=== PATIENT | female | born 1965 | race African-American/Black ===

== ENCOUNTER 2017-02-13 15:14 | Inpatient (IN) | payer OTHER ==
[~2017-02-13] VITALS: Ht 170.2 cm; Wt 60.8 kg
[~2017-02-13 15:14] MED LIST: ACET-2165 PO; ANT30 PO; BACL10TA PO; CLON1TAB4 PO; COG1 PO; FERR-57 PO; MAGN400O4 PO; RISP1TAB7 PO; ZOLP10TA2 PO
[2017-02-13 15:17] VITALS: BP_SYST 111
[2017-02-13] MEDS ORDERED: ALPR-373 PO (15:45)
[2017-02-13] MEDS ORDERED: LURA40TA PO (15:45)
[2017-02-13] MEDS ORDERED: TRAZ-123 PO (15:45)
[2017-02-13] MEDS ORDERED: ANT30 PO (15:45)
[2017-02-13] MEDS ORDERED: BACL20TA PO (15:45)
[2017-02-13 16:13] LABS: MEAN CORPUSCULAR HEMOGLOBIN 19 pg (27-31); MEAN CORPUSCULAR HGB CONC 30 % (32-36); MEAN CORPUSCULAR VOLUME 65 fL (79.0-98.0); PLATELET COUNT (AUTO) 61 K/uL (130-430); RED BLOOD CELL COUNT(AUTO) 3.07 MIL/uL (4.2-6.2); RED CELL DISTRIBUTION WIDTH 21.5 % (9.0-15.0)
[2017-02-13 16:20] LABS: ANION GAP 7 (5-15); CALCIUM 9.1 mg/dL (8.4-11.0); CHLORIDE 105 mmol/L (98-107); GLUCOSE 90 mg/dL (70-99); SODIUM SERUM 142 mmol/L (136-145); UREA NITROGEN, BLOOD 9 mg/dL (8-21)
[2017-02-13 16:21] LABS: HEMATOCRIT 19.9 % (36-48); HEMOGLOBIN 5.9 g/dL (12.0-16.0)
[2017-02-13 16:29] LABS: ALANINE AMINOTRANSFERASE 17 U/L (12-78); ALBUMIN 3.6 g/dL (3.4-4.8); ASPARTATE AMINOTRANSFERASE 24 U/L (10-37); TOTAL BILIRUBIN 0.4 mg/dL (0.0-1.0); TOTAL PROTEIN, SERUM 7.1 g/dL (6.4-8.3)
[2017-02-13 16:32] LABS: GFR AFRICAN AMERICAN 98 mL/min (>90)
[2017-02-13 16:47] LABS: ATYPICAL LYMPHOCYTES % 3 % (0-0); BAND % (MANUAL) 6 % (0-6); BASOPHILS % (MANUAL) 0 % (0-2); EOSINOPHILS % (MANUAL) 0 % (0-7); LYMPHOCYTES % (MANUAL) 46 % (20-46); MONOCYTES % (MANUAL) 2 % (0-11)
[2017-02-13 16:58] VITALS: BP_SYST 121
[2017-02-13 16:58] LABS: IRON (SERUM) 20 mcg/dL (37-145)
[2017-02-13 20:20] VITALS: BP_SYST 97
[2017-02-13 20:25] VITALS: BP_SYST 97
[2017-02-13] MEDS ORDERED: ACETAMINOPHEN 325 MG TABLET PO SCH (20:30)
[2017-02-13] MEDS ORDERED: ZOLPIDEM TARTRATE 5 MG TABLET PO SCH (20:30)
[2017-02-13] MEDS ORDERED: NON-FORMULARY MEDICATION (Alprazolam 0.5 MG) PO SCH (20:30)
[2017-02-13] MEDS ORDERED: MAG-AL HYDROX/SIMETH 30 ML UDC PO SCH (20:30)
[2017-02-13] MEDS ORDERED: BACLOFEN 10 MG TABLET PO SCH ×2 (21:00)
[2017-02-13] MEDS: BENZTROPINE MESYLATE 1 MG TABLET PO SCH (22:31)
[2017-02-13] MEDS: traZODone HCL 50 MG TABLET (DESYREL) PO SCH (22:31)
[2017-02-13] MEDS: risperiDONE 1 MG TABLET (RisperDAL) PO SCH (22:32)
[2017-02-13] MEDS: FERROUS SULFATE 325 MG TABLET.DR PO SCH (22:36)
[2017-02-14] MEDS ORDERED: DIPHENHYDRAMINE HCL 25 MG CAPSULE PO PRN (00:15)
[2017-02-14] MEDS ORDERED: ACETAMINOPHEN 325 MG TABLET PO PRN (00:45)
[2017-02-14] MEDS ORDERED: ZOLPIDEM TARTRATE 5 MG TABLET PO PRN (00:45)
[2017-02-14] MEDS ORDERED: MAG-AL HYDROX/SIMETH 30 ML UDC PO PRN (00:45)
[2017-02-14 03:37] VITALS: BP_SYST 114
[2017-02-14 07:17] LABS: HEMATOCRIT 26.8 % (36-48); MEAN CORPUSCULAR HEMOGLOBIN 20 pg (27-31); MEAN CORPUSCULAR HGB CONC 30 % (32-36); MEAN CORPUSCULAR VOLUME 67 fL (79.0-98.0); PLATELET COUNT (AUTO) 60 K/uL (130-430); RED CELL DISTRIBUTION WIDTH 20.9 % (9.0-15.0)
[2017-02-14 07:41] LABS: CREATININE 0.68 mg/dL (0.55-1.30); POTASSIUM 3.8 mmol/L (3.5-5.1)
[2017-02-14 08:03] LABS: WHITE BLOOD COUNT (AUTO) 3.7 K/uL (4.8-10.8)
[2017-02-14 08:24] VITALS: BP_SYST 117
[2017-02-14] MEDS: MILK OF MAGNESIA 30 ML UDC PO SCH ×2 (09:00→09:21)
[2017-02-14] MEDS: BACLOFEN 10 MG TABLET PO SCH ×3 (09:19→21:19)
[2017-02-14] MEDS: HYDROcodone/ACETAMIN 5-325 MG TAB (NORCO/ VICODIN) PO PRN ×3 (09:20→21:21)
[2017-02-14] MEDS: BENZTROPINE MESYLATE 1 MG TABLET PO SCH ×2 (09:20→21:20)
[2017-02-14] MEDS: risperiDONE 1 MG TABLET (RisperDAL) PO SCH ×2 (09:20→21:19)
[2017-02-14] MEDS: FERROUS SULFATE 325 MG TABLET.DR PO SCH ×2 (09:20→21:19)
[2017-02-14] MEDS: ALPRAZolam 0.25 MG TABLET PO PRN ×3 (09:29→23:04)
[2017-02-14 09:50] LABS: ATYPICAL LYMPHOCYTES % 0 % (0-0); BAND % (MANUAL) 1 % (0-6); BASOPHILS % (MANUAL) 0 % (0-2); EOSINOPHILS % (MANUAL) 8 % (0-7); LYMPHOCYTES % (MANUAL) 47 % (20-46); MONOCYTES % (MANUAL) 5 % (0-11)
[2017-02-14 11:19] VITALS: BP_SYST 134
[2017-02-14 15:26] VITALS: BP_SYST 129
[2017-02-14 16:46] LABS: BILIRUBIN,URINE NEGATIVE (NEGATIVE); BLOOD, URINE 2+ (NEGATIVE); GLUCOSE,URINE NEGATIVE (NEGATIVE); KETONES,URINE NEGATIVE (NEGATIVE); NITRITE, URINE NEGATIVE (NEGATIVE); PH,URINE 6.5 (5.0-8.0); PROTEIN URINE NEGATIVE (NEGATIVE); UROBILINOGEN,URINE 0.2 (0.2-1.0)
[2017-02-14 16:56] LABS: CLARITY/URINE HAZY (CLEAR); COLOR,URINE STRAW (YELLOW); LEUKOCYTE ESTERASE ,URINE 1+ (NEGATIVE)
[2017-02-14 16:58] LABS: BACTERIA,URINE FEW /HPF (None Seen); MUCUS,URINE None Seen /LPF (None Seen); RBC,URINE NONE SEEN /HPF (0-3)
[2017-02-14] MEDS ORDERED: NON-FORMULARY MEDICATION (Lurasidone Hcl (Latuda) 40 MG) PO SCH (18:00)
[2017-02-14 19:40] VITALS: BP_SYST 110
[2017-02-14] MEDS: clonazePAM 0.5 MG TABLET PO PRN (21:20)
[2017-02-14] MEDS: traZODone HCL 50 MG TABLET (DESYREL) PO SCH (21:20)
[2017-02-15 04:00] VITALS: BP_SYST 115
[2017-02-15 06:03] LABS: CALCIUM 9.4 mg/dL (8.4-11.0); CREATININE 0.73 mg/dL (0.55-1.30)
[2017-02-15 06:07] LABS: HEMATOCRIT 28.8 % (36-48); HEMOGLOBIN 8.6 g/dL (12.0-16.0); MEAN CORPUSCULAR HEMOGLOBIN 20 pg (27-31); MEAN CORPUSCULAR HGB CONC 30 % (32-36); MEAN CORPUSCULAR VOLUME 67 fL (79.0-98.0); PLATELET COUNT (AUTO) 87 K/uL (130-430); RED BLOOD CELL COUNT(AUTO) 4.26 MIL/uL (4.2-6.2); RED CELL DISTRIBUTION WIDTH 21.4 % (9.0-15.0); WHITE BLOOD COUNT (AUTO) 4.5 K/uL (4.8-10.8)
[2017-02-15 06:26] LABS: IRON (SERUM) 213 mcg/dL (37-145); TOTAL IRON BIND. CAPACITY 438 ug/dL (250-450)
[2017-02-15 08:00] VITALS: BP_SYST 123
[2017-02-15] MEDS: MILK OF MAGNESIA 30 ML UDC PO SCH (09:00)
[2017-02-15] MEDS: clonazePAM 0.5 MG TABLET PO PRN ×2 (09:10→15:25)
[2017-02-15] MEDS: HYDROcodone/ACETAMIN 5-325 MG TAB (NORCO/ VICODIN) PO PRN ×2 (09:10→15:25)
[2017-02-15] MEDS: BENZTROPINE MESYLATE 1 MG TABLET PO SCH ×2 (09:10→20:55)
[2017-02-15] MEDS: BACLOFEN 10 MG TABLET PO SCH ×3 (09:10→20:55)
[2017-02-15] MEDS: risperiDONE 1 MG TABLET (RisperDAL) PO SCH ×2 (09:10→20:55)
[2017-02-15] MEDS: FERROUS SULFATE 325 MG TABLET.DR PO SCH ×2 (09:11→20:55)
[2017-02-15 10:26] LABS: ATYPICAL LYMPHOCYTES % 2 % (0-0); BAND % (MANUAL) 9 % (0-6); LYMPHOCYTES % (MANUAL) 47 % (20-46); MONOCYTES % (MANUAL) 2 % (0-11)
[2017-02-15 10:28] LABS: BASOPHILS % (MANUAL) 0 % (0-2); EOSINOPHILS % (MANUAL) 2 % (0-7)
[2017-02-15 11:41] VITALS: BP_SYST 103
[2017-02-15 15:13] LABS: RETICULOCYTE COUNT 1.6 % (0.5-1.5)
[2017-02-15 15:37] VITALS: BP_SYST 113
[2017-02-15] MEDS: SOD FERRIC GLUC COMPLEX/SUC 125 MG in NS 100 ML IV SCH (18:30)
[2017-02-15] MEDS: traZODone HCL 50 MG TABLET (DESYREL) PO SCH (20:55)
[2017-02-15] MEDS: ALPRAZolam 0.25 MG TABLET PO PRN (21:04)
[2017-02-15 23:32] VITALS: BP_SYST 118
[2017-02-16] VITALS (7 sets, daily range): BP systolic 111–128
[2017-02-16 07:40] LABS: HEMATOCRIT 30.4 % (36-48); HEMOGLOBIN 9.1 g/dL (12.0-16.0); MEAN CORPUSCULAR HEMOGLOBIN 21 pg (27-31); MEAN CORPUSCULAR HGB CONC 30 % (32-36); MEAN CORPUSCULAR VOLUME 68 fL (79.0-98.0); PLATELET COUNT (AUTO) 183 K/uL (130-430); RED BLOOD CELL COUNT(AUTO) 4.46 MIL/uL (4.2-6.2); RED CELL DISTRIBUTION WIDTH 21.5 % (9.0-15.0)
[2017-02-16 08:05] LABS: ALBUMIN 3.8 g/dL (3.4-4.8); CALCIUM 9.9 mg/dL (8.4-11.0); CREATININE 0.8 mg/dL (0.55-1.30); POTASSIUM 3.7 mmol/L (3.5-5.1); TOTAL BILIRUBIN 0.2 mg/dL (0.0-1.0); TOTAL PROTEIN, SERUM 7.8 g/dL (6.4-8.3)
[2017-02-16] MEDS: risperiDONE 1 MG TABLET (RisperDAL) PO SCH ×2 (08:31→20:31)
[2017-02-16] MEDS: BACLOFEN 10 MG TABLET PO SCH ×3 (08:32→20:31)
[2017-02-16] MEDS: FERROUS SULFATE 325 MG TABLET.DR PO SCH ×2 (08:32→20:31)
[2017-02-16] MEDS: BENZTROPINE MESYLATE 1 MG TABLET PO SCH ×2 (08:32→20:31)
[2017-02-16 08:34] LABS: WHITE BLOOD COUNT (AUTO) 4.5 K/uL (4.8-10.8)
[2017-02-16] MEDS: HYDROcodone/ACETAMIN 5-325 MG TAB (NORCO/ VICODIN) PO PRN ×2 (08:37→15:23)
[2017-02-16] MEDS: clonazePAM 0.5 MG TABLET PO PRN ×2 (08:38→15:23)
[2017-02-16] MEDS: MILK OF MAGNESIA 30 ML UDC PO SCH (09:00)
[2017-02-16 10:16] LABS: ATYPICAL LYMPHOCYTES % 0 % (0-0); BAND % (MANUAL) 0 % (0-6); BASOPHILS % (MANUAL) 0 % (0-2); EOSINOPHILS % (MANUAL) 5 % (0-7); LYMPHOCYTES % (MANUAL) 46 % (20-46); MONOCYTES % (MANUAL) 4 % (0-11)
[2017-02-16 13:16] LABS: FOLATE (FOLIC ACID) 11.7 ng/mL (>3.0)
[2017-02-16] MEDS: SOD FERRIC GLUC COMPLEX/SUC 125 MG in NS 100 ML IV SCH (19:16)
[2017-02-16] MEDS: traZODone HCL 50 MG TABLET (DESYREL) PO SCH (20:31)
[2017-02-17 04:02] VITALS: BP_SYST 119
[2017-02-17 06:45] LABS: HEMOGLOBIN 8.9 g/dL (12.0-16.0); MEAN CORPUSCULAR VOLUME 69 fL (79.0-98.0); WHITE BLOOD COUNT (AUTO) 4.5 K/uL (4.8-10.8)
[2017-02-17 07:56] LABS: HEMATOCRIT 29.3 % (36-48); RED BLOOD CELL COUNT(AUTO) 4.27 MIL/uL (4.2-6.2)
[2017-02-17 07:57] LABS: MEAN CORPUSCULAR HEMOGLOBIN 21 pg (27-31); MEAN CORPUSCULAR HGB CONC 30 % (32-36); PLATELET COUNT (AUTO) 202 K/uL (130-430); RED CELL DISTRIBUTION WIDTH 21.8 % (9.0-15.0)
[2017-02-17] MEDS: BACLOFEN 10 MG TABLET PO SCH (09:28)
[2017-02-17] MEDS: FERROUS SULFATE 325 MG TABLET.DR PO SCH (09:28)
[2017-02-17] MEDS: BENZTROPINE MESYLATE 1 MG TABLET PO SCH (09:29)
[2017-02-17] MEDS: MILK OF MAGNESIA 30 ML UDC PO SCH (09:29)
[2017-02-17] MEDS: risperiDONE 1 MG TABLET (RisperDAL) PO SCH (09:29)
[2017-02-17] MEDS: clonazePAM 0.5 MG TABLET PO PRN (09:33)
[2017-02-17 10:30] LABS: ATYPICAL LYMPHOCYTES % 4 % (0-0); BAND % (MANUAL) 5 % (0-6); LYMPHOCYTES % (MANUAL) 42 % (20-46)
[2017-02-17 10:31] LABS: BASOPHILS % (MANUAL) 0 % (0-2); EOSINOPHILS % (MANUAL) 4 % (0-7); MONOCYTES % (MANUAL) 1 % (0-11)
[2017-02-17 12:17] VITALS: BP_SYST 111
[2017-02-17 13:13] VITALS: BP_SYST 119
== END 2017-02-17 14:50 | disposition home or self-care (01) | DRG 760 ==
LOC: SED 15:14 → STU 16:44 → SMU 02-16 13:24
PROVIDERS: ADMIT Internal Medicine; ATTEND Internal Medicine
PROC: 30233N1 Transfusion of Nonautologous Red Blood Cells into Peripheral Vein, Percutaneous Approach (ICD-10-PCS; principal; 2017-02-13)
PROC: 30233N1 Transfusion of Nonautologous Red Blood Cells into Peripheral Vein, Percutaneous Approach (ICD-10-PCS; 2017-02-14)
DX: N93.8 Other specified abnormal uterine and vaginal bleeding (principal); D62 Acute posthemorrhagic anemia; D69.6 Thrombocytopenia, unspecified; M54.9 Dorsalgia, unspecified; F99 Mental disorder, not otherwise specified; F25.0 Schizoaffective disorder, bipolar type; F32.9 Major depressive disorder, single episode, unspecified; D25.9 Leiomyoma of uterus, unspecified; F41.9 Anxiety disorder, unspecified; G89.29 Other chronic pain; Z79.899 Other long term (current) drug therapy; Z88.6 Allergy status to analgesic agent
CPT/HCPCS: 36415; 71010; 76700-TC; 80048; 80053; 81000-TC; 82607; 82728; 82746; 83540-TC; 83550-TC; 84484; 85007; 85027; 85044-TC; 86340; 86886; 86900; 86901; 86905; 86920; 87081; 93005; 99285; J2916; J7040; P9021